=== PATIENT | female | born 1945 | race Caucasian/White ===

== ENCOUNTER → 2016-08-28 | Outpatient (CLI) | payer MEDICARE, OTHER ==
[~2016-08-28] MED LIST: CARV25TA30 PO; CHOL40002 PO; FERR159T3 PO; LOSA50TA2 PO; LSRT50T PO; MAGN400T26 PO; OMG1KC PO; PRV20T PO
[2016-08-28 07:54] LABS: BASOPHILS % (AUTO) 1 % (0-2); EOSINOPHILS # (AUTO) 0.2 10^3uL; EOSINOPHILS % (AUTO) 3 % (0-4); LYMPHOCYTES # (AUTO) 2.2 X10^3; MEAN CORPUSCULAR HEMOGLOBIN 29.5 PG (26.0-34.0); MEAN CORPUSCULAR HGB CONC 33.3 g/dL (31.0-37.0); MEAN CORPUSCULAR VOLUME 89 FL (80-100); MEAN PLATELET VOLUME 9.2 FL (6.0-9.5); MONOCYTES # (AUTO) 0.5 X10^3; MONOCYTES % (AUTO) 9 % (3-11); NEUTROPHILS # (AUTO) 2.6 X10^3; NEUTROPHILS % (AUTO) 47 % (51-67); PLATELET COUNT 272 10^3uL (150-450)
[2016-08-28 08:21] LABS: ALBUMIN 4.2 g/dL (3.4-5.0); ANION GAP 15.6 MEQ/L (3-15); CALCULATED IONIZED CALCIUM 4.2 mg/dL (3.8-4.6); MAGNESIUM* 2.3 mg/dL (1.6-2.3); TOTAL PROTEIN 7.3 g/dL (6.4-8.5)
[2016-08-28 08:42] LABS: ERYTHROCYTE SEDIMENTATION RT* 10 mm/hr (0-23)
== END ==
LOC: LAB 07:37
PROVIDERS: ATTEND Family Medicine
DX: R79.89 Other specified abnormal findings of blood chemistry (principal); D50.8 Other iron deficiency anemias; M35.3 Polymyalgia rheumatica; E83.42 Hypomagnesemia; E03.4 Atrophy of thyroid (acquired)
CPT/HCPCS: 36415; 80053; 82533; 83735; 84436; 84443; 85025; 85652

== ENCOUNTER → 2016-11-20 | Outpatient (CLI) | payer MEDICARE, OTHER ==
[2016-11-20 11:11] LABS: BILIRUBIN,URINE Negative (Negative); CLARITY,URINE Cloudy; COLOR,URINE Yellow; GLUCOSE, URINE (UA) Negative (Negative); LEUKOCYTE ESTERASE ,URINE 3+ (Negative); PH,URINE 7.5 (5.0 - 8.0); UROBILINOGEN,URINE 0.2 mg/dL (0.2-1.0)
[2016-11-20 11:23] LABS: URINE CENTRIFUGED VOLUME 12 mL
[2016-11-20 11:28] LABS: ALBUMIN 4.3 g/dL (3.4-5.0); ANION GAP 16.1 MEQ/L (3-15); TOTAL PROTEIN 7.5 g/dL (6.4-8.5)
== END ==
LOC: LAB 10:55
PROVIDERS: ATTEND Family Medicine
DX: R79.89 Other specified abnormal findings of blood chemistry (principal); E78.2 Mixed hyperlipidemia; N39.0 Urinary tract infection, site not specified; G72.0 Drug-induced myopathy; K71.2 Toxic liver disease with acute hepatitis
CPT/HCPCS: 36415; 80053; 80061; 81003; 81015; 82550; 82977; 87077; 87088; 87186